=== PATIENT | male | born 1970 | race Caucasian/White ===

== ENCOUNTER → 2022-07-08 15:40 | Outpatient (CLI) | payer BC, SELFPAY | PROVIDERS: PCP Nurse Practitioner Family; Visit Provider Nurse Practitioner Family | DX: M50.10 Cervical disc disorder with radiculopathy, unspecified cervical region (principal) ==

== ENCOUNTER → 2022-07-25 11:03 | Outpatient (CLI) | payer BC, SELFPAY ==
--- NOTE | 2022-07-25 11:09 | MR_ITS ---
FINAL REPORT TECHNIQUE: Multiplanar MR without contrast CLINICAL HISTORY: CIRVICAL DISC DISORDER, right arm numbness FINDINGS: Limited images of the posterior fossa are unremarkable. Alignment is normal. C2-3: Unremarkable C3-4: Small central disc protrusion minimally contacts the spinal cord. C4-5: Minimal annular disc bulge. Mild bilateral neural foraminal narrowing. C5-6: Moderate annular disc bulge. Thickening of the posterior longitudinal ligament. Mild central canal stenosis. Moderate bilateral neural foraminal narrowing. Probable subtle increased signal in the anterior cord that may represent cord edema or myelomalacia. C6-7: Moderate annular disc bulge. Mild central canal stenosis. Mild bilateral neural foraminal narrowing. C7-T1: Tiny central disc protrusion. IMPRESSION: Canal stenosis most pronounced at C5-C6 with subtle cord signal change that may represent myelomalacia or cord edema. Reviewed, Interpreted and Dictated by Berlin Barbosa MD Transcribed by Yousif Acevedo Authenticated and [facility]
== END ==
PROVIDERS: PCP Nurse Practitioner Family; Visit Provider Nurse Practitioner Family
DX: M50.10 Cervical disc disorder with radiculopathy, unspecified cervical region (principal)
CPT/HCPCS: 72141; 76376

== ENCOUNTER → 2022-08-10 08:52 | Outpatient (POV) | payer BC, SELFPAY ==
[2022-08-10 09:04] VITALS: BP 157/90; PULSE 82; RESP 18; O2SAT 97; BMI 38.0
--- NOTE | 2022-08-10 10:19 | EXP.PAIN.OV ---
HPI Data of Consult Patient: new to practice Consult date: 08/10/22 Requesting Physician: Teresa Lopez APRN Primary Care Provider: Katerina Fish Consult Narrative Reason for consult: Neck pain, right arm pain History of present illness: Mr. Franz is a 51 year old male who presents today as a new patient. He is a referral from Katerina Fish. He rates his pain today a 10 out of 10. Patient states he has neck pain with radiating symptoms into his right arm. Patient does describe this as a aching, throbbing sensation that is worse with increased activity and numbness and tingling from his elbow down. Patient states this did start approximately 2 months ago and is unrelated to any trauma or injury. He states this has worsened over time. Patient has tried gabapentin 400 mg daily with no improvement. Patient is also been prescribed an oral steroid Dosepak and tramadol with no additional relief. Heat and ice he states have made no difference. Patient did try physical therapy however this has worsened his symptoms. Patient denies any surgical or injection history. Patient does state that due to his pain symptoms he is having to sleep in a chair. His Johnnie is [phone]. Its been reviewed and appropriate. CC: Teresa Lopez APRN [facility] Disclaimer: The information contained in this section may have been updated after the patient was seen, as this information can be updated by other users. Medical History (Updated 08/10/22 @ 10:21 by Teresa Lopez APRN) COPD (chronic obstructive pulmonary disease) GERD (gastroesophageal reflux disease) HLD (hyperlipidemia) HTN (hypertension) HENRIK (obstructive sleep apnea) Surgical History (Updated 08/10/22 @ 09:10 by Nely Rodriguez RN) History of appendectomy Social History (Updated 08/10/22 @ 09:10 by Nely Rodriguez RN) Smoking Status: Current every day smoker alcohol intake: never current occupational status: employed Travel in the last 8 weeks: None Review of Systems Review of Systems Review of systems:: pertinent systems reviewed and negative unless documented below Review of systems (narrative): Review of Systems: General: No recent weight changes, no fever, no sleep disturbances Respiratory: No cough, no shortness of air, no recurring pulmonary infections Cardiovascular/peripheral vascular: No chest pain, no palpitations, no edema, no shortness of breath Gastrointestinal: No new onset incontinence, normal bowel movements reported Genitourinary: No new onset incontinence Musculoskeletal: Neck pain, right arm pain Psychiatric: [Normal mood/affect] Neurological: [Denies weakness in extremities], [denies balance issues] Meds Home Medications and Allergies Home Medications Medication Instructions Recorded Confirmed Type fexofenadine 180 mg tablet 180 mg PO DAILY ALLERGIES 08/10/22 08/10/22 History (Allergy Relief (fexofenadine)) fluticasone fur. 100 mcg-umeclid 1 inh inhalation DIRECTED 08/10/22 08/10/22 History 62.5 mcg-vilant 25 mcg Breathing problems inhalat.powder (Trelegy Ellipta) gabapentin 400 mg capsule 400 mg PO DAILY Pain 08/10/22 08/10/22 History meloxicam 7.5 mg tablet 7.5 mg PO DAILY Pain 08/10/22 08/10/22 History omeprazole 20 mg capsule,delayed 20 mg PO DAILY STOMACH 08/10/22 08/10/22 History release pravastatin 80 mg tablet 80 mg PO DAILY Cholesterol 08/10/22 08/10/22 History New Prescriptions to Start Prescriptions: Objective Vital signs: Pulse Resp BP Pulse Ox 82 18 157/90 H 97 08/10/22 09:04 08/10/22 09:04 08/10/22 09:04 08/10/22 09:04 Narrative: Physical Exam: General: Alert and oriented x3, no acute distress, pleasant and cooperative Lungs: Respirations even and unlabored, symmetrical chest expansion Eyes: PERRL Musculoskeletal: Flexion and extension of cervical [spine] somewhat guarded secondary to pain, [antalgic gait noted] Neurological: Speech clear, no gross sensory deficit Additional fi
== END ==
PROVIDERS: PCP Nurse Practitioner Family; Visit Provider Nurse Practitioner Family
DX: M50.123 Cervical disc disorder at C6-C7 level with radiculopathy (principal); M47.22 Other spondylosis with radiculopathy, cervical region; M79.601 Pain in right arm; M48.02 Spinal stenosis, cervical region
CPT/HCPCS: 99202; G0463

== ENCOUNTER 2022-08-16 08:15 | Day surgery (SDC) | payer BC, SELFPAY ==
[2022-08-16 08:28] VITALS: BP 156/97; PULSE 85; RESP 18; TEMP 36.6; O2SAT 96; BMI 38.0
[2022-08-16 08:46] VITALS: BP 164/100; PULSE 80; RESP 18; O2SAT 97
[2022-08-16 08:47] VITALS: BP 164/105; PULSE 80; RESP 18; O2SAT 97
[2022-08-16 08:52] VITALS: BP 149/92; PULSE 78; RESP 18; O2SAT 96
--- NOTE | 2022-08-16 09:28 | P.PCN_ITS ---
Procedure Date: 08/16/22 Time: 08:50 Anesthesiologist:: Duane Harris CRNA Complications:: None Pre-procedure Diagnosis:: Degenerative disc disease cervical spine multilevels. Cervical radiculopathy. Post-procedure Diagnosis:: Same. Indications for Procedure:: Patient is a very pleasant 51-year-old male that comes our clinic today for cervical epidural steroid injection C6-7. Patient has cervical neck pain as well as bilateral arm pain. He rates his pain 7/10. Procedure Details:: Procedure:Cervical epidural steroid injection Informed consent was obtained and the risks and benefits of the procedure were explained to the patient. The patient was taken to the procedure room and noninvasive monitors placed, including noninvasive blood pressure cuff and pulse oximeter. The neck was prepped using Chloraprep as a cleansing solution. The C6- C7 interspace was viewed using fluroscopy. The skin and subcutaneous tissues were anesthetized using lidocaine 1.5% and a 25-gauge needle. After this an 18- gauge Touhy epidural needle was placed into the C6-C7 interspace under fluroscopy guidance and advanced using loss of resistance to air until the epidural space was encountered. After confirmation of needle placement in the epidural space using contrast dye, a solution containing normal saline, 2 mL and Depo-Medrol 80 mg was incrementally injected into the cervical epidural space.~ The patient tolerated the procedure well with no complications. The patient was observed in the Pain Clinic and then discharged home neurologically intact. Plan and Disposition:: Patient was discharged without incident.
== END 2022-08-16 08:52 | disposition home or self-care (01) ==
LOC: SC.PAINP 08:16
PROVIDERS: PCP Nurse Practitioner Family; Visit Provider Nurse Anesthetist, Certified Registered
DX: M50.123 Cervical disc disorder at C6-C7 level with radiculopathy (principal)
CPT/HCPCS: 62321; J1040; Q9966

== ENCOUNTER 2022-08-23 22:58 | Emergency (ER) | payer BC, SELFPAY ==
[2022-08-23 22:59] VITALS: BP 148/89; PULSE 96; RESP 18; TEMP 36.3; O2SAT 96; BMI 38.0
[2022-08-23 23:31] VITALS: BP 131/86; PULSE 72; O2SAT 95
--- NOTE | 2022-08-23 23:50 | HMH.EDGENADL ---
Discharge Plan Disposition Patient Disposition: Home, Self-Care Chief Complaint: PAIN Prescriptions Prescriptions: No Action gabapentin 400 mg capsule 400 mg PO DAILY Label Comments: TAKE 1 CAPSULE 1 TIME EACH DAY AT BEDTIME fexofenadine [Allergy Relief (fexofenadine)] 180 mg tablet 180 mg PO DAILY meloxicam 7.5 mg tablet 7.5 mg PO DAILY Label Comments: TAKE 1 TABLET 1 TIME EACH DAY pravastatin 80 mg tablet 80 mg PO DAILY Label Comments: TAKE 1 TABLET 1 TIME EACH DAY AT BEDTIME omeprazole 20 mg capsule,delayed release(DR/EC) 20 mg PO DAILY Trelegy Ellipta 100-62.5-25 mcg blister with device 1 inh INHALATION DIRECTED Referrals Follow up/Referrals: Katerina Fish [Primary Care Provider] - See instructions Clinical Impressions Clinical Impression: Cervical radiculopathy Instructions Patient Instructions: DI for Cervical Radiculopathy Discharge ED Provider: Jose (ED)Maciel General Adult HPI General Chief complaint: PAIN Stated complaint: rIGHT ARM PAIN Time Seen by Provider: 08/23/22 23:50 Mode of Arrival: Ambulatory Limitations: No Limitations Description of Symptoms (Recalled from ER Triage Doc. by RN): pt reports that he has pain in his right arm that started last year the pt states that he has had multiple MRI and this is an acute problem that is caused from a pinched nerve in his neck. the pt claims that his pain is 10/10. History of Present Illness HPI narrative: pt with acute exacerbation of neck pain rad to rt upper ext - has recent mri c spine and has seen pain center - no fever or rash and no acute trauma Onset (ago): week(s) Location: neck Radiation: extremity Severity: severe Consistency: constant Associated symptoms: denies other symptoms Related Data Home Medications Medication Instructions Recorded Confirmed fexofenadine 180 mg tablet 180 mg PO DAILY ALLERGIES 08/10/22 08/16/22 (Allergy Relief (fexofenadine)) fluticasone fur. 100 mcg-umeclid 1 inh inhalation DIRECTED 08/10/22 08/16/22 62.5 mcg-vilant 25 mcg Breathing problems inhalat.powder (Trelegy Ellipta) gabapentin 400 mg capsule 400 mg PO DAILY Pain 08/10/22 08/16/22 meloxicam 7.5 mg tablet 7.5 mg PO DAILY Pain 08/10/22 08/16/22 omeprazole 20 mg capsule,delayed 20 mg PO DAILY STOMACH 08/10/22 08/16/22 release pravastatin 80 mg tablet 80 mg PO DAILY Cholesterol 08/10/22 08/16/22 Allergies Allergy/AdvReac Type Severity Reaction Status Date / Time No Known Allergies Allergy Verified 08/16/22 08:32 [facility] Disclaimer: The information contained in this section may have been updated after the patient was seen, as this information can be updated by other users. Medical History (Updated 08/24/22 @ 00:03 by Maciel Garcia (NEDA)MD) COPD (chronic obstructive pulmonary disease) GERD (gastroesophageal reflux disease) HLD (hyperlipidemia) HTN (hypertension) HENRIK (obstructive sleep apnea) Surgical History History of appendectomy Family History (Updated 08/16/22 @ 08:29 by Carolyn Whitaker RN) Other No significant family history Social History Smoking Status: Current every day smoker alcohol intake: never current occupational status: employed Travel in the last 8 weeks: None ROS Obtained: Yes All systems reviewed & no additional complaints except as documented Physical Exam General General appearance: alert Head Head exam: normocephalic Eye Eye exam: Present PERRL and EOMI; Absent scleral icterus ENT ENT exam: Present mucous membranes moist Neck Neck exam: Present trachea midline Respiratory Respiratory exam: Absent respiratory distress Cardiovascular Cardiovascular exam: Present regular rate Extremities Exam Extremities exam: Present normal inspection Neurological Exam Neurological exam: Pr
--- NOTE | 2022-08-23 23:52 | PC.NURSE ---
Dr. Garcia at BS speaking with pt
[2022-08-24 00:01] VITALS: BP 161/98; PULSE 76; RESP 20; O2SAT 94
[2022-08-24 00:07] VITALS: BP 156/78; PULSE 90; RESP 18; TEMP 36.3; O2SAT 95
== END 2022-08-24 00:08 | disposition home or self-care (01) ==
PROVIDERS: Emergency Provider Emergency Medicine; PCP Nurse Practitioner Family
DX: M54.12 Radiculopathy, cervical region (principal); J44.9 Chronic obstructive pulmonary disease, unspecified; K21.9 Gastro-esophageal reflux disease without esophagitis; E78.5 Hyperlipidemia, unspecified; I10 Essential (primary) hypertension; F17.210 Nicotine dependence, cigarettes, uncomplicated; Z90.49 Acquired absence of other specified parts of digestive tract
CPT/HCPCS: 96372; 99283; 99284

== ENCOUNTER 2024-12-14 15:47 | Emergency (ER) | payer OTHER, SELFPAY ==
[2024-12-14 15:52] VITALS: BP 147/84; PULSE 74; RESP 16; TEMP 36.4; O2SAT 94; BMI 36.9
--- NOTE | 2024-12-14 15:57 | HMH.EDGENADL ---
Discharge Plan Disposition Patient Disposition: Home, Self-Care Prescriptions Prescriptions: No Action gabapentin 400 mg capsule 400 mg PO DAILY Patient Comments: TAKE 1 CAPSULE 1 TIME EACH DAY AT BEDTIME fexofenadine [Allergy Relief (fexofenadine)] 180 mg tablet 180 mg PO DAILY meloxicam 7.5 mg tablet 7.5 mg PO DAILY Patient Comments: TAKE 1 TABLET 1 TIME EACH DAY pravastatin 80 mg tablet 80 mg PO DAILY Patient Comments: TAKE 1 TABLET 1 TIME EACH DAY AT BEDTIME omeprazole 20 mg capsule,delayed release(DR/EC) 20 mg PO DAILY Trelegy Ellipta 100-62.5-25 mcg blister with device 1 inh INHALATION DIRECTED Referrals Follow up/Referrals: Katerina Fish [Primary Care Provider] - See instructions Activity Restrictions/Add. Instructions Additional Instructions/Restrictions: Today you were evaluated in the emergency department had ultrasound performed of your tendons. It does not appear that anything is ruptured today. Please take the ibuprofen as directed. Please follow-up with your PCP. Clinical Impressions Clinical Impression: Arm pain, right Instructions Patient Instructions: DI for Arm Pain Print Language Print Language: Maltese Discharge ED Provider: Maikol Ferrari General Adult HPI <Nikia Chowdhury APRN - Last Filed: 12/14/24 16:32> General Chief complaint: Extremity Injury, Upper Stated complaint: Hurt R Arm; Severe Pain Time Seen by Provider: 12/14/24 16:01 Mode of Arrival: Ambulatory Source of Information: Patient Description of Symptoms (Recalled from ER Triage Doc. by RN): Patient was lifting a 50 lb bag when felt a pop in the right upper arm. History of Present Illness HPI narrative: patient is a 54-year-old male PMHx tobacco use and obesity who presents to the ED for complaints of right arm pain. Patient states he was throwing dry calf milk bags that weighed approximately 50 pounds onto his shoulder when he suddenly felt something pop in his right bicep area and lost strength immediately. Related Data Home Medications ?Medication ?Instructions ?Recorded ?Confirmed fexofenadine 180 mg tablet 180 mg PO DAILY ALLERGIES 08/10/22 08/16/22 (Allergy Relief (fexofenadine)) fluticasone fur. 100 mcg-umeclid 1 inh inhalation DIRECTED 08/10/22 08/16/22 62.5 mcg-vilant 25 mcg Breathing problems inhalat.powder (Trelegy Ellipta) gabapentin 400 mg capsule 400 mg PO DAILY Pain 08/10/22 08/16/22 meloxicam 7.5 mg tablet 7.5 mg PO DAILY Pain 08/10/22 08/16/22 omeprazole 20 mg capsule,delayed 20 mg PO DAILY STOMACH 08/10/22 08/16/22 release pravastatin 80 mg tablet 80 mg PO DAILY Cholesterol 08/10/22 08/16/22 Allergies Allergy/AdvReac Type Severity Reaction Status Date / Time No Known Allergies Allergy Verified 08/16/22 08:32 [facility] <Nikia Chowdhury APRN - Last Filed: 12/14/24 16:32> [facility] Disclaimer: The information contained in this section may have been updated after the patient was seen, as this information can be updated by other users. Medical History (Updated 12/14/24 @ 16:29 by Nikia Chowdhury APRN) GERD (gastroesophageal reflux disease) HTN (hypertension) COPD (chronic obstructive pulmonary disease) HENRIK (obstructive sleep apnea) HLD (hyperlipidemia) Surgical History History of appendectomy Family History (Updated 08/16/22 @ 08:29 by Carolyn Whitaker RN) Other No significant family history Social History Smoking Status: Current every day smoker alcohol intake: never current occupational status: employed Travel in the last 8 weeks?: None Have you lived/traveled outside [place] in past 30 days?: No Contact w/someone who lives/traveled outside [place] past 30 days?: No Exposure to someone with infectious disease in past 14 days?: No Do you have a fever (greater than 100.4 F or 38 C)?: No Have you tested positive for COVID-19?: No Exposed to someone with COVID-19 in past 14 days?: No Do you have a sore throat?: No Do you have a cough?: No Do you have any weakness?: No Do you have any diarrhea?: No Are you experiencing any unusual bleeding?: No Do you have any muscle aches/pain?: No Do you have any abdominal pain?: No Are you experiencing loss of taste or smell?: No Other Medical History Have you received the Flu Vaccine for this season: No Have you received the Pneumonia Vaccine: No <Nikia CastrejonJESSIE butler - Last Filed: 12/14/24 16:32> ROS Obtained: Yes Systems reviewed as appropriate & no additional complaints except as documented Physical Exam <Nikia CastrejonJESSIE butler - Last Filed: 12/14/24 16:32> General General appearance: alert and in no apparent distress Head Head exam: atraumatic and normocephalic Eye Eye exam: Present normal appearance and PERRL ENT ENT exam: Present normal exam Neck Neck exam: Present normal inspection Chest Chest inspection: Present normal inspection and symmetric chest wall rise; Absent tenderness Respiratory Respiratory exam: Present normal lung sounds bilaterally Cardiovascular Cardiovascular exam: Present regular rate Abdominal Exam Abdominal exam: Present soft and normal bowel sounds; Absent tenderness Extremities Exam Extremities exam: Present full ROM and tenderness (right bicep area ) Back Exam Back exam: Present normal inspection and full ROM Neurological Exam Neurological exam: Present alert and oriented X3 Psychiatric Psychiatric exam: Present normal affect and normal mood Skin Skin exam: Present warm and dry Medical Decision Making <Nikia Chowdhury APRN - Last Filed: 12/14/24 16:32> Medical Records Screening: Per USPSTF and CDC recommendations, given the prevalence of disease in our region, it is our hospital?s policy to screen for HIV and viral Hepatitis for all patients aged 18 and over and those with ongoing risk factors. Johnnie Inquiry Pt receiving controlled substance: No Vital Signs: 12/14/24 15:52 12/14/24 16:37 Temperature 97.5 F L 97.9 F Temperature Source Temporal Artery Scan Oral Pulse Rate 80 Pulse Rate [Right] 74 Respiratory Rate 16 17 Blood Pressure 142/78 H Blood Pressure [Left Arm] 147/84 H Blood Pressure Mean [Left Arm] 105 Blood Pressure Source Automatic Cuff Blood Pressure Position Sitting 02 Sat by Pulse Oximetry 94 L Oxygen Delivery Method Room Air Room Air Orders (Tests/Meds): ED MEDICATIONS Discontinued Medications Generic Name Dose Route Start Last Admin Trade Name Freq PRN Reason Stop Dose Admin Ibuprofen 400 mg 12/14/24 16:28 12/14/24 16:32 Ibuprofen 400 Mg Tablet PO 12/14/24 16:29 400 mg ONCE ONE Administration ORDERS Category Date Time Status POCUS Point of Care (ER Only) Stat Exams 12/14/24 16:06 Taken Medical Decision Narrative: In summary, patient is a 54-year-old male PMHx current tobacco use and obesity who presents to the ED for complaints of right arm pain. Patient states he was throwing dry calf milk bags that weighed approximately 50 pounds onto his shoulder when he suddenly felt something pop in his right bicep area and lost strength immediately. He denies any additional injury at this time. Denies hx of injury in right arm. Denies pain elsewhere. Upon initial evaluation patient is alert, oriented and cooperative. He is able to flex and extend, has pain around his biceps area. Neurovascular status intact. Differential diagnosis include tendon rupture, tear, ligamentous injury, subluxation, among others. Attending performed POCUS, no tendon rupture noted on exam. Discussed with patient that exam is reassuring of nothing acute happening today. We discussed taking ibuprofen, he is not currently taking his meloxicam. Advised him to follow-up with his PCP for possible physical therapy referral if issue continues. We discussed return precautions to the ED. Patient verbalized understanding. <Maikol Ferrari MD - Last Filed: 12/15/24 23:28> Vital Signs: 12/14/24 15:52 12/14/24 16:37 Temperature 97.5 F L 97.9 F Temperature Source Temporal Artery Scan Oral Pulse Rate 80 Pulse Rate [Right] 74 Respiratory Rate 16 17 Blood Pressure 142/78 H Blood Pressure [Left Arm] 147/84 H Blood Pressure Mean [Left Arm] 105 Blood Pressure Source Automatic Cuff Blood Pressure Position Sitting 02 Sat by Pulse Oximetry 94 L Oxygen Delivery Method Room Air Room Air Orders (Tests/Meds): ED MEDICATIONS Discontinued Medications Generic Name Dose Route Start Last Admin Trade Name Pramod PRN Reason Stop Dose Admin Ibuprofen 400 mg 12/14/24 16:28 12/14/24 16:32 Ibuprofen 400 Mg Tablet PO 12/14/24 16:29 400 mg ONCE ONE Administration ORDERS Category Date Time Status POCUS Point of Care (ER Only) Stat Exams 12/14/24 16:06 Taken Medical Decision Narrative: In summary, patient is a 54-year-old male PMHx current tobacco use and obesity who presents to the ED for complaints of right arm pain. Patient states he was throwing dry calf milk bags that weighed approximately 50 pounds onto his shoulder when he suddenly felt something pop in his right bicep area and lost strength immediately. He denies any additional injury at this time. Denies hx of injury in right arm. Denies pain elsewhere. Upon initial evaluation patient is alert, oriented and cooperative. He is able to flex and extend, has pain around his biceps area. Neurovascular status intact. Differential diagnosis include tendon rupture, tear, ligamentous injury, subluxation, among others. Attending performed POCUS, no tendon rupture noted on exam. Discussed with patient that exam is reassuring of nothing acute happening today. We discussed taking ibuprofen, he is not currently taking his meloxicam. Advised him to follow-up with his PCP for possible physical therapy referral if issue continues. We discussed return precautions to the ED. Patient verbalized understanding. I was consulted by the ALEJANDRO, and we discussed the complexity of the problems being addressed.I approved the treatment and management plan for this patient?s care in the Emergency Department, thus performing a substantive portion of the medical decision making.Signed, Maikol Ferrari MD MBA Critical Care <Nikia Chowdhury APRN - Last Filed: 12/14/24 16:32> Critical Care Time Critical Care Time: No
[2024-12-14] MEDS: IBUPROFEN 400 MG TABLET PO (16:32)
[2024-12-14 16:37] VITALS: BP 142/78; PULSE 80; RESP 17; TEMP 36.6; O2SAT 95
== END 2024-12-14 16:40 | disposition home or self-care (01) ==
PROVIDERS: Emergency Provider Emergency Medicine; PCP Nurse Practitioner Family
DX: M79.601 Pain in right arm (principal)
CPT/HCPCS: 99283